=== PATIENT | male | born 1970 | race Native Hawaiian/Other Pacific Islander ===

== ENCOUNTER 2017-04-29 08:49 | Emergency (ER) | payer SELFPAY ==
[~2017-04-29] VITALS: Ht 182.9 cm; Wt 92.0 kg
[2017-04-29 08:50] VITALS: BP 133/73; PULSE 87; RESP 14; TEMP 98.7; O2SAT 100
[2017-04-29 09:30] VITALS: O2SAT 99
[2017-04-29] MEDS ORDERED: SODIUM CHLOR 0.9% 1000 ML INJ 1,000 ML IV SCH (09:37)
--- NOTE | 2017-04-29 09:42 | PD ---
HPI Chief Complaint: Flank/Kidney Pain Time Seen by Provider: 09:26 Travel History International Travel<30 days: No Contact w/Intl Traveler<30days: No Traveled to known affect area: No History of Present Illness HPI Patient is a 47-year-old male with history of kidney stones, presents to emergency room with complaints of left sided flank pain. Patient reports that for the past 15 days, he has been having intermittent left sided flank pain, reports that the pain does radiate to his groin. Patient denies any nausea vomiting with symptoms, denies any hematuria, dysuria, urinary urgency or frequency. Patient reports that he was diagnosed with a kidney stone 3 years ago while in [place], reports that at that time, he did not require any surgical intervention. Patient reports that he has not followed-up with urologist since then, reports that his symptoms feel exactly the same as when he was diagnosed with kidney stones. Reports that when he has exacerbation of pain, pain is moderate to severe in nature. Patient denies any fever or chills, denies any nausea vomiting this time. Patient with no other complaints. PFSH Past Medical History Kidney Stones: Yes Past Surgical History Surgical History: No Previous Surgery Social History Alcohol Use: No Tobacco Use: No Substance Use: No Allergies-Medications (Allergen,Severity, Reaction): Coded Allergies: No Known Allergies (Verified Allergy, Unknown, 04/29/17) Review of Systems General / Constitutional: No: Fever Eyes: No: Visual changes HENT: No: Headaches Cardiovascular: No: Chest Pain or Discomfort Respiratory: No: Shortness of Breath Gastrointestinal: No: Nausea, Vomiting, Abdominal Pain Genitourinary: Positive: Flank Pain, No: Urgency, Frequency, Dysuria, Hematuria , Hesitancy, Incontinence Musculoskeletal: No: Pain Skin: No Rash Neurologic: No: Weakness Psychiatric: No: Depression Endocrine: No: Polydipsia Hematologic/Lymphatic: No: Easy Bruising Physical Exam Narrative GENERAL: Mild distress SKIN: Focused skin assessment warm/dry. HEAD: Atraumatic. Normocephalic. EYES: Pupils equal and round. No scleral icterus. No injection or drainage. ENT: No nasal bleeding or discharge. Mucous membranes pink and moist. NECK: Trachea midline. No JVD. CARDIOVASCULAR: Regular rate and rhythm. No murmur appreciated. RESPIRATORY: No accessory muscle use. Clear to auscultation. Breath sounds equal bilaterally. GASTROINTESTINAL: Abdomen soft, non-tender, nondistended. Hepatic and splenic margins not palpable. MUSCULOSKELETAL: No obvious deformities. No clubbing. No cyanosis. No edema. Patient with left sided flank pain NEUROLOGICAL: Awake and alert. Normal speech. PSYCHIATRIC: Appropriate mood and affect; insight and judgment normal. Data Data Last Documented VS Vital Signs Date Time Temp Pulse Resp B/P (MAP) Pulse Ox O2 Delivery O2 Flow Rate FiO2 04/29/17 09:30 99 04/29/17 08:50 98.7 87 14 Orders Orders Complete Blood Count With Diff (04/29/17:26) Comprehensive Metabolic Panel (04/29/17:26) Prothrombin Time / Inr (Pt) (04/29/17:26) Act Partial Throm Time (Ptt) (04/29/17:26) Urinalysis - C+S If Indicated (04/29/17:26) Iv Access Insert/Monitor (04/29/17:26) Ecg Monitoring (04/29/17:26) Oximetry (04/29/17:26) Ct Abd/Pel W/O Iv Contrast (04/29/17 09:37) Morphine Inj (Morphine Inj) (04/29/17 09:45) Ondansetron Inj (Zofran Inj) (04/29/17 09:45) Sodium Chlor 0.9% 1000 Ml Inj (Ns 1000 M (04/29/17 09:37) Sodium Chloride 0.9% Flush (Ns Flush) (04/29/17 09:45) Labs Laboratory Tests Test 04/29/17 09:40 White Blood Count 4.7 TH/MM3 Red Blood Count 5.59 MIL/MM3 Hemoglobin 15.7 GM/DL Hematocrit 45.6 % Mean Corpuscular Volume 81.5 FL Mean Corpuscular Hemoglobin 28.0 PG Mean Corpuscular Hemoglobin Concent 34.4 % Red Cell Distribution Width 13.1 % Platelet Count 211 TH/MM3 Mean Platelet Volume 7.5 FL Neutrophils (%) (Auto) 39.4 % Lymphocytes (%) (Auto) 44.6 % Monocytes (%) (Auto) 11.1 % Eosinophils (%) (Auto) 4.2 % Basophils (%) (Auto) 0.7 % Neutrophils # (Auto) 1.8 TH/MM3 Lymphocytes # (Auto) 2.1 TH/MM3 Monocytes # (Auto) 0.5 TH/MM3 Eosinophils # (Auto) 0.2 TH/MM3 Basophils # (Auto) 0.0 TH/MM3 CBC Comment DIFF FINAL Differential Comment Prothrombin Time 10.7 SEC Prothromb Time International Ratio 1.1 RATIO Activated Partial Thromboplast Time 25.1 SEC Urine Color LIGHT-YELLOW Urine Turbidity CLEAR Urine pH 6.5 Urine Specific [place] 1.006 Urine Protein NEG mg/dL Urine Glucose (UA) NEG mg/dL Urine Ketones NEG mg/dL Urine Occult Blood NEG Urine Nitrite NEG Urine Bilirubin NEG Urine Urobilinogen LESS THAN 2.0 MG/DL Urine Leukocyte Esterase NEG Urine RBC LESS THAN 1 /hpf Urine WBC 1 /hpf Urine Squamous Epithelial Cells <1 /hpf Microscopic Urinalysis Comment CULT NOT INDICATED Blood Urea Nitrogen 18 MG/DL Creatinine 1.02 MG/DL Random Glucose 104 MG/DL Total Protein 7.6 GM/DL Albumin 3.8 GM/DL Calcium Level 8.6 MG/DL Alkaline Phosphatase 73 U/L Aspartate Amino Transf (AST/SGOT) 19 U/L Alanine Aminotransferase (ALT/SGPT) 39 U/L Total Bilirubin 0.6 MG/DL Sodium Level 137 MEQ/L Potassium Level 3.7 MEQ/L Chloride Level 102 MEQ/L Carbon Dioxide Level 30.3 MEQ/L Anion Gap 5 MEQ/L Estimat Glomerular Filtration Rate 78 ML/MIN [facility] Medical Decision Making Medical Screen Exam Complete: Yes Emergency Medical Condition: Yes Medical Record Reviewed: Yes Interpretation(s) Vital Signs Date Time Temp Pulse Resp B/P (MAP) Pulse Ox O2 Delivery O2 Flow Rate FiO2 04/29/17 08:50 98.7 87 14 133/73 (93) 100 Differential Diagnosis Kidney stones, pyelonephritis, cystitis, musculoskeletal pain Narrative Course 47 year old male who presents to the ER with c/o of left sided flank pain which has been intermittent for the past 15 days. Patient reports history of kidney stones in the past. During the course of the patients emergency department visit, the patients history, examination, and differential diagnosis were reviewed with the patient. The patient was placed on a campus monitor with oximetry and frequent blood pressure monitoring. The patient had an IV access obtained and blood work sent for analysis. The patient was initially provided IVF as well as IV morphine and zofran The patients laboratory studies were reviewed and remarkable for: Laboratory Tests Test 04/29/17 09:40 White Blood Count 4.7 TH/MM3 (4.0-11.0) Red Blood Count 5.59 MIL/MM3 (4.50-5.90) Hemoglobin 15.7 GM/DL (13.0-17.0) Hematocrit 45.6 % (39.0-51.0) Mean Corpuscular Volume 81.5 FL (80.0-100.0) Mean Corpuscular Hemoglobin 28.0 PG (27.0-34.0) Mean Corpuscular Hemoglobin Concent 34.4 % (32.0-36.0) Red Cell Distribution Width 13.1 % (11.6-17.2) Platelet Count 211 TH/MM3 (150-450) Mean Platelet Volume 7.5 FL (7.0-11.0) Neutrophils (%) (Auto) 39.4 % (16.0-70.0) Lymphocytes (%) (Auto) 44.6 % (9.0-44.0) Monocytes (%) (Auto) 11.1 % (0.0-8.0) Eosinophils (%) (Auto) 4.2 % (0.0-4.0) Basophils (%) (Auto) 0.7 % (0.0-2.0) Neutrophils # (Auto) 1.8 TH/MM3 (1.8-7.7) Lymphocytes # (Auto) 2.1 TH/MM3 (1.0-4.8) Monocytes # (Auto) 0.5 TH/MM3 (0-0.9) Eosinophils # (Auto) 0.2 TH/MM3 (0-0.4) Basophils # (Auto) 0.0 TH/MM3 (0-0.2) CBC Comment DIFF FINAL Differential Comment Prothrombin Time 10.7 SEC (9.8-11.6) Prothromb Time International Ratio 1.1 RATIO Activated Partial Thromboplast Time 25.1 SEC (24.3-30.1) Urine Color LIGHT-YELLOW (YELLW/STRAW) Urine Turbidity CLEAR (CLEAR) Urine pH 6.5 (5.0-8.5) Urine Specific [place] 1.006 (1.002-1.035) Urine Protein NEG mg/dL (NEG-TRACE) Urine Glucose (UA) NEG mg/dL (NEG) Urine Ketones NEG mg/dL (NEG) Urine Occult Blood NEG (NEG) Urine Nitrite NEG (NEG) Urine Bilirubin NEG (NEG) Urine Urobilinogen LESS THAN 2.0 MG/DL (LESS Urine Leukocyte Esterase NEG (NEG) Urine RBC LESS THAN 1 /hpf (0-3) Urine WBC 1 /hpf (0-5) Urine Squamous Epithelial Cells <1 /hpf (0-5) Microscopic Urinalysis Comment CULT NOT INDICATED Blood Urea Nitrogen 18 MG/DL (7-18) Creatinine 1.02 MG/DL (0.60-1.30) Random Glucose 104 MG/DL (74-106) Total Protein 7.6 GM/DL (6.4-8.2) Albumin 3.8 GM/DL (3.4-5.0) Calcium Level 8.6 MG/DL (8.5-10.1) Alkaline Phosphatase 73 U/L (45-117) Aspartate Amino Transf (AST/SGOT) 19 U/L (15-37) Alanine Aminotransferase (ALT/SGPT) 39 U/L (12-78) Total Bilirubin 0.6 MG/DL (0.2-1.0) Sodium Level 137 MEQ/L (136-145) Potassium Level 3.7 MEQ/L (3.5-5.1) Chloride Level 102 MEQ/L (98-107) Carbon Dioxide Level 30.3 MEQ/L (21.0-32.0) Anion Gap 5 MEQ/L (5-15) Estimat Glomerular Filtration Rate 78 ML/MIN (>89) Radiology studies were reviewed and remarkable for Last Impressions Abdomen/Pelvis CT 04/29/17 0937 Signed Impressions: Service Date/Time: Saturday, April 29, 2017 10:07 - CONCLUSION: No acute disease. No evidence of nephrolithiasis, obstructive uropathy or inflammatory bowel disease. Modesto Garcia MD All labs and all studies reviewed in detail with patient, patient with no signs of pyelonephritis, patient with no signs of cystitis, no evidence of obstructive uropathy or nephrolithiasis. Patient with most likely muscle strain. Reports now reports that he has been working out at the gym heavily, patient with most likely muscle strain this time. Signs and symptoms of when to return to the emergency room was reviewed with patient in detail. He will follow-up with his primary care doctor and will return to the emergency room as needed. Patient thankful for care Diagnosis Primary Impression: Flank pain, acute Additional Impression: Muscle strain Patient Instructions: General Instructions, Narcotic given in the ED Additional Instructions: Please follow up with your primary care doctor in 2-3 days Return to the ER if symptoms worsen or progress Return to the ER as needed Please do not drive or operate heavy machinery while taking muscle relaxers Med/Other Pt SpecificInfo: Prescription(s) given Scripts Cyclobenzaprine (Flexeril) 5 Mg Tab 5 MG PO TID for Muscle Spasm, #12 TAB 0 Refills Prov: Nilam Sauceda DO 04/29/17 Ibuprofen (Ibuprofen) 600 Mg Tab 600 MG PO Q6H Y for Pain/Inflammation, #40 TAB 0 Refills Prov: Nilam Sauceda DO 04/29/17 Disposition: 01 DISCHARGE HOME Condition: Stable Nilam Sauceda DO Apr 29, 2017 09:42
[2017-04-29] MEDS ORDERED: SODIUM CHLORIDE 0.9% FLUSH 10 ML FLUSH IV FLUSH PRN (09:45)
[2017-04-29] MEDS ORDERED: MORPHINE SULFATE 4 MG/ML INJ IV PUSH ONE (09:45)
[2017-04-29] MEDS ORDERED: ONDANSETRON HCL 4 MG/2 ML VIAL IVP ONE (09:45)
[2017-04-29 10:05] LABS: AUTOMATED NEUTROPHIL # 1.8 TH/MM3 (1.8-7.7); BASOPHIL % 0.7 % (0.0-2.0); EOSINOPHIL # 0.2 TH/MM3 (0-0.4); EOSINOPHIL % 4.2 % (0.0-4.0); HEMATOCRIT 45.6 % (39.0-51.0); HEMO FLAGS DIFF FINAL; LYMPH % 44.6 % (9.0-44.0); LYMPHOCYTE # 2.1 TH/MM3 (1.0-4.8); MEAN CELL VOLUME 81.5 FL (80.0-100.0); MEAN CORPUSCULAR HGB CONC 34.4 % (32.0-36.0); MONO % 11.1 % (0.0-8.0); NEUT % 39.4 % (16.0-70.0); PLATELET COUNT 211 TH/MM3 (150-450); RED BLOOD COUNT 5.59 MIL/MM3 (4.50-5.90); RED CELL DISTRIBUTION WIDTH 13.1 % (11.6-17.2); WHITE BLOOD COUNT 4.7 TH/MM3 (4.0-11.0)
[2017-04-29 10:11] LABS: BLOOD, URINE NEG (NEG); COMMENT (UR) CULT NOT INDICATED; CULTURE IF INDICATED CULT NOT INDICATED; GLUCOSE,URINE NEG (NEG); KETONE, URINE NEG (NEG); NITRITE,URINE NEG (NEG); PH, URINE 6.5 (5.0-8.5); SQUAMOUS EPITHELIAL CELL URINE <1 /hpf (0-5); URINE COLOR LIGHT-YELLOW (YELLW/STRAW)
[2017-04-29 10:15] LABS: APTT (PATIENT) 25.1 SEC (24.3-30.1); INTERNATIONAL NORMALIZED RATIO 1.1 RATIO; PROTHROMBIN TIME - PATIENT 10.7 SEC (9.8-11.6)
[2017-04-29 10:31] LABS: ALT (GPT) 39 U/L (12-78); ANION GAP 5 MEQ/L (5-15); AST (GOT) 19 U/L (15-37); BICARBONATE 30.3 MEQ/L (21.0-32.0); BLOOD UREA NITROGEN 18 MG/DL (7-18); CHLORIDE 102 MEQ/L (98-107); GLOMERULAR FILTRATION RATE 78 ML/MIN (>89); POTASSIUM 3.7 MEQ/L (3.5-5.1); SODIUM (NA) 137 MEQ/L (136-145)
[2017-04-29 10:33] LABS: ALKALINE PHOSPHATASE 73 U/L (45-117); TOTAL BILIRUBIN ADULT 0.6 MG/DL (0.2-1.0)
--- NOTE | 2017-04-29 10:54 | RADRPT ---
EXAM DATE/TIME: 04/29/2017 10:07 [facility] COMPARISON: No previous studies available for comparison. INDICATIONS : Left flank pain for weeks ORAL CONTRAST: No oral contrast ingested. RADIATION DOSE: 15.75 CTDIvol (mGy) MEDICAL HISTORY : Renal calculi. SURGICAL HISTORY : None. ENCOUNTER: Initial ACUITY: 2 weeks PAIN SCALE: 5/10 LOCATION: Left flank TECHNIQUE: Volumetric scanning of the abdomen and pelvis was performed. Using automated exposure control and ad justment of the mA and/or kV according to patient size, radiation dose was kept as low as reasonably achievable to obtain optimal diagnostic quality images. DICOM format image data is available electro nically for review and comparison. FINDINGS: LOWER LUNGS: The visualized lower lungs are clear. LIVER: Homogeneous density without lesion. There is no dilation of the biliary tree. No calcified gallston es. SPLEEN: Normal size without lesion. PANCREAS: Within normal limits. KIDNEYS: Normal in size and shape. There is no mass, stone, or hydronephrosis. ADRENAL GLANDS: Within normal limits. VASCULAR: There is no aortic aneurysm. BOWEL/MESENTERY: The stomach, small bowel, and colon demonstrate no acute abnormality. There is no free intraperitone al air or fluid. ABDOMINAL WALL: Within normal limits. RETROPERITONEUM: There is no lymphadenopathy. BLADDER: No wall thickening or mass. REPRODUCTIVE: Within normal limits. INGUINAL: There is no lymphadenopathy or hernia. MUSCULOSKELETAL: Within normal limits for patient age. CONCLUSION: No acute disease. No evidence of nephrolithiasis, obstructive uropathy or inflammatory bowel disease. Modesto Garcia MD on April 29, 2017 at 10:46 Board Certified Radiologist. This report was verified electronically.
[2017-04-29] MEDS ORDERED: CYCL5TAB PO (11:14)
[2017-04-29] MEDS ORDERED: IBUP-232 PO (11:14)
== END 2017-04-29 11:53 | disposition home or self-care (01) ==
LOC: NEPD 08:49
DX: R10.9 Unspecified abdominal pain (principal); Z87.442 Personal history of urinary calculi
CPT/HCPCS: 74176; 80053; 81001; 85025; 85610; 85730; 96374; 96375; 99285; J2270; J2405; J7030